=== PATIENT | female | born 1980 | race Caucasian/White ===

== ENCOUNTER 2019-11-29 23:19 | Emergency (ER) ==
[~2019-11-29] VITALS: Ht 160 cm; Wt 81.8 kg
[~2019-11-29 23:19] MED LIST: AMOXICILLIN 8751 TAB PO; ATARAX 25MG25 MG/TAB PO; ATIVAN 0.50.5 MG/TAB PO; MEDROL 4MG DOSPA4 MG PO; NEXPLANON68 MG ID; NORCO 325 MG-51 TAB PO; TYLENOL 500MG500 MG PO; ULTRAM 50MG TAB50 MG PO; VENTOLIN0.09 MG IH
[2019-11-29] MEDS ORDERED: ATARAX 25MG25 MG/TAB PO ×2 (23:32→23:33)
[2019-11-29] MEDS ORDERED: CEPHALEXIN500 M1 PO (23:36)
[2019-11-29] MEDS ORDERED: PHENERGAN 25 TA25 MG PO (23:45)
== END 2019-11-30 00:10 | disposition home or self-care (01) ==
LOC: COL.ER 23:19
DX: L02.211 Cutaneous abscess of abdominal wall (principal); R51 Headache; R50.9 Fever, unspecified; J45.909 Unspecified asthma, uncomplicated; Z79.899 Other long term (current) drug therapy; Z20.828 Contact with and (suspected) exposure to other viral communicable diseases
CPT/HCPCS: J1885

== ENCOUNTER 2020-11-16 10:18 | Emergency (ER) | payer MEDICAID ==
[~2020-11-16] VITALS: Ht 160 cm; Wt 84.1 kg
[~2020-11-16 10:18] MED LIST changes: +CEPHALEXIN500 M1 PO; +PHENERGAN 25 TA25 MG PO
[2020-11-16 10:50] VITALS: TEMP 99.2
[2020-11-16 13:52] LABS: BASO # 0.1 (0.0-0.2); BASO % 0.7 % (0.0-2.0); EOS # 0.3 (0.0-0.7); EOS % 3.7 % (0-4.0); GRAN % 47.4 % (42.2-75.2); HEMATOCRIT 43.5 % (37.0-47.0); HEMOGLOBIN 14.4 g/dl (12.5-16.0); LYMPH # 3.5 (1.2-3.4); LYMPH % 41.3 % (20.0-51.0); MEAN CELL VOLUME 87 fl (80.0-100.0); MEAN CORPUSCULAR HEMOGLOBIN 29 pg (27.0-31.0); MEAN CORPUSCULAR HGB CONC 33 g/dl (33.0-37.0); MEAN PLATELET VOLUME 11.5 fl (7.4-10.4); MONO # 0.6 (0.1-0.6); MONO % 6.8 % (1.7-9.3); PLATELET COUNT 223 K/mm3 (130-400); RED BLOOD COUNT 4.98 M/mm3 (4.10-5.30); REDCELL DISTRIBUTION WIDTH-CV 14.6 % (11.5-14.5)
[2020-11-16 14:13] LABS: C-REACTIVE PROTEIN 0.8 mg/dL (0.0-0.9); CALCIUM 9.1 mg/dL (8.4-10.2); CREATININE, serum 0.49 (0.52-1.25); POTASSIUM 3.9 mmol/L (3.4-5.0)
[2020-11-16 14:23] LABS: ERYTHROCYTE SEDIMENTATION RATE 6 mm/hr (0-20)
[2020-11-16 14:50] VITALS: BP 129/70; PULSE 78
== END 2020-11-16 14:50 | disposition home or self-care (01) ==
LOC: COL.ER 10:18
PROVIDERS: Emergency Medicine
DX: M25.531 Pain in right wrist (principal); Z88.6 Allergy status to analgesic agent